=== PATIENT | male | born 1970 | race Caucasian/White ===

== ENCOUNTER → 2019-08-24 14:14 | Outpatient (BNVA) | payer OTHER, SELFPAY | PROVIDERS: Family Provider Family Medicine; PCP Family Medicine; Visit Provider Nurse Practitioner Family | DX: R05 Cough (principal) | CPT/HCPCS: 87071; 87400; 87635; 87880 ==

== ENCOUNTER → 2021-11-23 13:15 | Outpatient (BNVA) | payer BC, MEDICAID, SELFPAY | PROVIDERS: Family Provider Family Medicine; PCP Family Medicine; Visit Provider Emergency Medicine | DX: J06.9 Acute upper respiratory infection, unspecified (principal); Z20.822 Contact with and (suspected) exposure to COVID-19 | CPT/HCPCS: 87635 ==

== ENCOUNTER 2023-01-01 09:17 | Outpatient (CLI) | payer BC, MEDICAID, SELFPAY ==
--- NOTE | 2023-01-01 09:26 | XR_ITS ---
WS: [id number] XR hand LT min 3V* [id number] REASON FOR EXAM: Left Hand Pain FINDINGS: Minimally displaced fracture at the medial base of the first metacarpal with articular surface involv ement. No other significant abnormality of the left hand. IMPRESSION: Fracture of the first metacarpal as above.
== END 2023-01-01 09:18 | disposition home or self-care (01) ==
LOC: RAD 09:21
PROVIDERS: PCP Nurse Practitioner Family; Visit Provider Nurse Practitioner Family
DX: S62.232A Other displaced fracture of base of first metacarpal bone, left hand, initial encounter for closed fracture (principal); X58.XXXA Exposure to other specified factors, initial encounter
CPT/HCPCS: 73130

== ENCOUNTER → 2023-01-12 07:38 | Outpatient (BNVA) | payer BC, MEDICAID, SELFPAY | PROVIDERS: PCP Nurse Practitioner Family; Visit Provider Student in an Organized Health Care Education/Training Program | DX: S62.202A Unspecified fracture of first metacarpal bone, left hand, initial encounter for closed fracture; W16.112A Fall into natural body of water striking water surface causing other injury, initial encounter; Y93.16 Activity, rowing, canoeing, kayaking, rafting and tubing | CPT/HCPCS: 73130 ==

== ENCOUNTER 2023-01-12 10:59 | Outpatient (CLI) | payer BC, MEDICAID, SELFPAY | END 2023-01-12 11:00 | disposition home or self-care (01) | LOC: SPT 10:59 | PROVIDERS: PCP Nurse Practitioner Family; Visit Provider Student in an Organized Health Care Education/Training Program | DX: Z46.89 Encounter for fitting and adjustment of other specified devices (principal); S62.202D Unspecified fracture of first metacarpal bone, left hand, subsequent encounter for fracture with routine healing; X58.XXXD Exposure to other specified factors, subsequent encounter | CPT/HCPCS: 97760; L3982 ==

== ENCOUNTER 2023-01-20 09:40 | Outpatient (CLI) | payer BC, MEDICAID, SELFPAY ==
--- NOTE | 2023-01-20 10:00 | CT_ITS ---
WS: [id number] CT LEFT HAND, NONCONTRAST HISTORY: left hand contusion, pain at base of thumb. Technique: All CT scans at [facility] use at least one of these dose optimization techniques: automated exposure control; mA and/or kV adjustment per patient size (includes targeted exams where dose is matched to clinical indication); or iterative reconstruction. DLP: 126.35 mGy.cm COMPARISON: Hand radiograph 01/12/2023 Comminuted intra-articular fracture involving the base of the first metacarpal. Fracture fragment is triangulated measuring 6 x 10 mm. This fracture extends to the carpometacarpal articulation with mild displacement by 4 mm along the fracture. There are additional smaller comminuted fracture fragments along the medial first metacarpal. No additional fractures. Scaphoid is normal. The remaining metacarpals are normally aligned. IMPRESSION: 1. Comminuted intra-articular fracture involving the base of the first metacarpal. 2. Largest fracture fragment is 6 x 10 mm and displaced from the parent bone by 4 mm.
== END 2023-01-20 09:41 | disposition home or self-care (01) ==
LOC: RAD 09:42
PROVIDERS: PCP Nurse Practitioner Family; Visit Provider Student in an Organized Health Care Education/Training Program
DX: S62.232A Other displaced fracture of base of first metacarpal bone, left hand, initial encounter for closed fracture (principal); X58.XXXA Exposure to other specified factors, initial encounter
CPT/HCPCS: 73200

== ENCOUNTER 2023-02-11 11:36 | Day surgery (SDC) | payer BC, MEDICAID, SELFPAY ==
[2023-02-10 14:46] VITALS: BMI 41.0
[2023-02-11] VITALS (10 sets, daily range): BP systolic 108–162; BP diastolic 64–121; PULSE 72–88; RESP 12–22; TEMP 36.1–36.8; O2SAT 94–98; BMI 41.0
--- NOTE | 2023-02-11 | XR_ITS ---
WS: [id number] XR hand LT min 3V* [id number] REASON FOR EXAM: ORIF first metacarpal , or pic FINDINGS: Screw fixation of oblique fracture at the medial base of the first metacarpal. Fracture fragments are in good position and alignment. Surgical appliances are intact and in proper position and alignment. IMPRESSION: First metacarpal fracture with fixation without abnormality.
[2023-02-11] MEDS: acetaminophen 1,000 MG/100 ML PIGGYBACK 400 MG IV (12:01)
[2023-02-11] MEDS: ketorolac 30 mg/mL INJ IVP (12:01)
[2023-02-11] MEDS: sodium chloride 0.9% 1,000 ML 30 ML IV (12:01)
[2023-02-11] MEDS: vancomycin 1,500 MG/300 ML PIGGYBACK 200 MG IV (12:20)
--- NOTE | 2023-02-11 13:24 | W.PM.OPSUD ---
Surgery/Procedure H&P Update DATE OF PROCEDURE: February 11, 2023 DATE H&P PERFORMED: 02/05/23 H&P UPDATE INFORMATION: I have reviewed H&P completed within last 30 days, I have examined patient prior to procedure and No changes to prior documentation PREOP DIAGNOSIS: Left first metacarpal base fracture PRIMARY INDICATION FOR PROCEDURE: Left first metacarpal base fracture displaced (Padgett) PLANNED PROCEDURE: Operation Date: 02/11/23 13:15 Proposed Procedures p Left first metacarpal open reduction internal fixation 39984,S62.209A(Left) - Barrett Christie DO
--- NOTE | 2023-02-11 13:52 | ANES.PREANE2 ---
Pre-Anesthetic Assessment Height/Weight: Height 1.73 m Weight 122.47 kg Temp Pulse Resp BP Pulse Ox O2 Del Method 96.9 F L 87 18 127/101 97 Room Air 02/11/23 11:53 02/11/23 11:53 02/11/23 11:53 02/11/23 11:53 02/11/23 11:53 02/11/23 11:54 Preop Diagnosis: Left first metacarpal base fracture Operation Date: 02/11/23 13:15 Proposed Procedures p Left first metacarpal open reduction internal fixation 80682,S62.209A(Left) - Barrett Christie DO Familial anesthetic complications: none Was Beta Nurys taken within 24 hours: N/A Was Clonidine taken within 24 hours: N/A Last intake: Intake Last Liquid Date 02/10/23 Last Liquid Time 23:00 Last Solid Date 02/10/23 Last Solid Time 23:00 Last Intake: 23:00 Social Alcohol and Tobacco Exam alert, oriented x 3, clear to auscultation bilaterally and regular rate & rhythm Airway Submandibular: within normal limits Cervical ROM: within normal limits Mallampati: Class II Dentition: full Pulmonary Chronic Obstructive Pulmonary Disease and Cough CV/HEM None reported None reported Hepatic None reported GI None reported Metabolic None reported Musc/skel None reported Neuropsych None reported Anesthetic Plan ASA status: 2 Anesthesia: General Risk of > 500 ml blood loss (7ml/kg in children): No Medications/Allergies Home Medications Medication Instructions Recorded Confirmed Last Taken Type hydrocodone 5 mg-acetaminophen 325 1 tab PO Q6H PRN pain 5 days #20 02/11/23 Unknown Rx mg tablet tabs Allergies Allergy/AdvReac Type Severity Reaction Status Date / Time cephalexin [From Keflex] Allergy RASH Verified 02/05/23 08:13 Current Medications Generic Name Dose Route Start Last Admin Trade Name Freq PRN Reason Stop Dose Admin Sodium Chloride 1,000 mls @ 30 mls/hr 02/11/23 11:45 02/11/23 12:19 Sodium Chloride 0.9% IV 02/12/23 11:44 30 mls/hr .Q24H INDRA Infusion PFSH Anesthesia Social History Smoking and tobacco status: current every day smoker Alcohol intake: current Substance/Drug Use: never Data Anesthesia Cardiac Studies: No Data to Display
[2023-02-11] MEDS: lidocaine 2% INJ 20 mL INJECTION (14:18)
[2023-02-11] MEDS: ROPivacaine 0.5% SDV 30 mL 150 MG INJECTION (14:18)
--- NOTE | 2023-02-11 16:04 | W.PM.BPON ---
Date of Procedure: 02/11/2023 Surgeon: Barrett Christie DO Field Placement Director(s): None Procedure(s) performed: Left first metacarpal base open reduction internal fixation (Padgett fracture ORIF) Findings of the procedure(s): Intra-articular Padgett fracture base of the left first metacarpal, procedure went as planned with 3 lag screw fixation Estimated blood loss: 5 cc Specimen(s) removed: None Post-operative diagnosis: Intra-articular left first metacarpal base fracture
--- NOTE | 2023-02-11 16:06 | PM.OP ---
Operative Report Date of procedure: February 11, 2023 Pre-op diagnosis: Left first metacarpal base fracture Post-op diagnosis: Same with intra-articular involvement consistent with Padgett fracture Procedure done: Left first metacarpal base fracture open reduction internal fixation Implants: [place] handset Three 2.0 mm nonlocking cortical screws placed in lag fashion (16 mm, 18 mm, 15 mm) Surgeon: Barrett Christie DO Estimated blood loss: 5 ML 90 minutes IV fluids: 1200 mL Complications: None Findings: See operative report narrative Condition: stable Disposition: same day Brief History: Patient is a 52-year-old male who sustained an injury to the left thumb findings consistent with a left thumb base of the first metacarpal fracture. Patient had a Padgett fracture with noticeable subluxation as well as large fracture fragment this was CT scan and given the fracture displacement and subluxation of the joint as well as patient's persistent pain with conservative treatment through shared decision making was followed up in the office and decision made to proceed with a left first metacarpal ORIF. Patient understands that the ins and outs procedure the risk benefits complication alternatives surgery elects proceed with surgical intervention all questions answered at this time. Procedure: Patient was seen eval in the preoperative holding area. Consent was reviewed and signed with patient. Correct extremity was then marked. When seen eval by anesthesia and cleared for surgery was taken back to the operative suite. He underwent transportation on a hospital gurney and an armboard was applied to the left upper arm. He underwent anesthesia per the anesthesia department once appropriately anesthetized the left upper extremity had a tourniquet applied not sterilely to the left upper arm. Once appropriately anesthetized left upper extremity is then prepped and draped in standard orthopedic fashion. Final timeout performed. Patient received appropriate preoperative antibiotics. Large C arm was then brought in for visualization of fracture. Patient had a Padgett fracture with a large volar fracture fragment. Given patient's several weeks out from his injury I manipulated the fracture under anesthesia and under fluoroscopic imaging and there was no reduction of this fracture fragment and continued diastases and incongruency of the joint as a result plan was to proceed with open procedure. A standard curvilinear incision was made off of the dorsal and radial aspect of the left thumb metacarpal. This we performed a standard Dickinson approach sharp dissection through skin was performed then switched to Littler dissection scissors identify superficial cutaneous nerve branches which were then subsequently protected. I then protecting the APL and EPB tendons I then performed a standard elevation with a periosteal sleeve off of the metacarpal removing the thenar musculature and 1 thick sleeve. I then utilized a blunt [place] as well as elevator to elevate periosteum volarly. I then placed blunt Padgett retractors to retract the thenar musculature and then encountered the fracture fragment. This was a large volar fracture fragment I utilized a curette dental pick as well as rongeur to debride the bone as well as scar tissue and fibrous tissue that was interposed within the fracture site. Once the fracture site was prepped and appropriately debrided I utilized a [id number] reduction which I had direct visualization after my capsulotomy of the basal joint of the thumb to assess for joint congruity small adjustments were made and once satisfied with my reduction with direct visualization as well as fluoroscopic imaging I proceeded with fixation. Given this large fragment that finger this would be amendable for small 2.0 mm cortical screws. I then subsequently proceeded with placing 2 screws along the subchondral bone to rafter and lagged this fracture fragment. I drilled these under fluoroscopic imaging to verify appropriate trajectory and placement in with multiple orthogonal images. I subsequently drilled these and lag by technique fashion the screws were then appropriately drilled measured and placed appropriate length screws along the subchondral surface had excellent fixation of the fracture fragment. These were confirmed utilizing visualization through my capsulotomy did not be intra-articular and at this point in time I placed 1 more additional lag screw and more oblique fashion from the metacarpal shaft proximally and more in an oblique angle. This was subsequently drilled and lag screw by technique was then drilled measured and placed appropriate length screw with excellent fixation. This point time I then removed my dental clip and had excellent fixation and secure reduction of the basal joint and the base of the first metacarpal fracture. I took the thumb through gentle range of motion joint was located within the trapezium saddle and had smooth motion with no clicking. Final images were taken with x-ray and confirmed appropriate reduction and fixation of the base of the first metacarpal fracture. Tourniquet was deflated hemostasis was satisfactory. Thorough irrigation was then performed. I then closed the capsulotomy with moderate Monocryl suture as well as repair of the thenar musculature back to the periosteum. I then closed the skin with interrupted Vicryl suture and nylon stitches. Patient was then dressed with Xeroform 4 x 4's Kerlix ABD and soft roll as well as a thumb spica splint was applied with Twin wrap. Patient was then awake from anesthesia and taken to PACU in stable condition. Disposition: Patient taken to PACU in stable condition recovering well pain controlled. Patient received appropriate discharge structure as well as pain medication postoperatively. We will be nonweightbearing to the operative extremity maintain splint until follow-up. Patient understands agrees to current plan. Questions answered.
[2023-02-11] MEDS: HYDROcodone-acetaminophen 5-325 mg Tablet 1 TAB PO (16:58)
== END 2023-02-11 17:22 | disposition home or self-care (01) ==
PROVIDERS: PCP Nurse Practitioner Family; Visit Provider Student in an Organized Health Care Education/Training Program
PROC: (CPT 26615; 2023-02-11 13:05)
DX: S62.212A Bennett's fracture, left hand, initial encounter for closed fracture (principal); X58.XXXA Exposure to other specified factors, initial encounter; J44.9 Chronic obstructive pulmonary disease, unspecified; F17.210 Nicotine dependence, cigarettes, uncomplicated
CPT/HCPCS: 26615; 73130; 76000; C1713; J0131; J1100; J1170; J1885; J2405; J2704; J2795; J3010; J3370; J7030

== ENCOUNTER → 2023-02-25 13:24 | Outpatient (BNVA) | payer BC, MEDICAID, SELFPAY | PROVIDERS: PCP Nurse Practitioner Family; Visit Provider Physician Assistant | DX: S62.202D Unspecified fracture of first metacarpal bone, left hand, subsequent encounter for fracture with routine healing; X58.XXXD Exposure to other specified factors, subsequent encounter | CPT/HCPCS: 73130 ==

== ENCOUNTER → 2023-03-11 14:22 | Outpatient (BNVA) | payer BC, MEDICAID, SELFPAY | PROVIDERS: PCP Nurse Practitioner Family; Visit Provider Physician Assistant | DX: S62.202D Unspecified fracture of first metacarpal bone, left hand, subsequent encounter for fracture with routine healing; X58.XXXD Exposure to other specified factors, subsequent encounter | CPT/HCPCS: 73130 ==

== ENCOUNTER 2023-04-01 06:00 | Outpatient (CLI) | payer BC, MEDICAID, SELFPAY | END 2023-04-01 06:01 | LOC: SOT 04-05 10:50 | PROVIDERS: PCP Nurse Practitioner Family; Visit Provider Student in an Organized Health Care Education/Training Program | DX: Z46.89 Encounter for fitting and adjustment of other specified devices (principal); S62.202D Unspecified fracture of first metacarpal bone, left hand, subsequent encounter for fracture with routine healing; X58.XXXD Exposure to other specified factors, subsequent encounter | CPT/HCPCS: 97760; L3919 ==

== ENCOUNTER → 2023-04-01 09:29 | Outpatient (BNVA) | payer BC, MEDICAID, SELFPAY | PROVIDERS: PCP Nurse Practitioner Family; Visit Provider Physician Assistant | DX: S62.202D Unspecified fracture of first metacarpal bone, left hand, subsequent encounter for fracture with routine healing; X58.XXXD Exposure to other specified factors, subsequent encounter | CPT/HCPCS: 73130 ==

== ENCOUNTER 2024-02-18 13:18 | Outpatient (CLI) | payer BC, MEDICAID, SELFPAY ==
--- NOTE | 2024-02-18 13:24 | CT_ITS ---
WS: [id number] LDCT LUNG CANCER SCREENING HISTORY: SMOKING GREATER THAN 30 PACK YEAR TECHNIQUE: Axial imaging performed from the apices to 1 cm below the costophrenic angles. Coronal and sagittal reformats are submitted with axial MIP series. All CT scans at [facility] use at least one of these dose optimization techniques: automated exposure control; mA and/or kV adjustment per patient size (includes targeted exams where dose is matched to clinical indication); or iterativ e reconstruction. DLP: 128.90 mGy.cm DIvol: Mean CTDIvol: 3.00 (mGy) COMPARISON: None available. Diagnostic quality: Motion artifact and poor inspiratory effort. Lungs: Hazy attenuation within slightly related to smoking history. 4 mm subpleural nodule anterior L EFT upper lobe. Benign granuloma in the RIGHT middle and RIGHT lower lobes. 4 mm subpleural nodule RI GHT lung base, image 206 of series 4. Heart: Normal size heart with no pericardial effusion.. Other findings: No adenopathy. Partially calcified lymph nodes at the RIGHT hilum. No adrenal mass. CT/CT lung screening [id number] IMPRESSION: LUNG-RADS: 2-Benign Appearance or Behavior FOLLOW UP: 12 Month: Continue annual screening with LDCT OTHER FINDINGS (S MODIFIER): None.
== END 2024-02-18 13:19 | disposition home or self-care (01) ==
LOC: RAD 13:19
PROVIDERS: PCP Nurse Practitioner Family; Visit Provider Nurse Practitioner Family
DX: Z12.2 Encounter for screening for malignant neoplasm of respiratory organs (principal); R91.8 Other nonspecific abnormal finding of lung field; J84.10 Pulmonary fibrosis, unspecified
CPT/HCPCS: 71271

== ENCOUNTER 2024-08-08 10:44 | Day surgery (SDC) | payer BC, MEDICAID, SELFPAY ==
[2024-08-08 11:14] VITALS: BP 128/86; PULSE 85; RESP 16; TEMP 36.4; O2SAT 97; BMI 38.0
[2024-08-08] MEDS: sodium chloride 0.9% 500 ML 15 ML IV (11:19)
--- NOTE | 2024-08-08 12:09 | ANES.PREANE2 ---
Pre-Anesthetic Assessment Height/Weight: Height 1.73 m Weight 113.398 kg Temp Pulse Resp BP Pulse Ox O2 Del Method 97.5 F L 85 16 128/86 97 Room Air 08/08/24 11:14 08/08/24 11:14 08/08/24 11:14 08/08/24 11:14 08/08/24 11:14 08/08/24 11:14 Preop Diagnosis: GI issues/urinary issues Operation Date: 08/08/24 11:45 Proposed Procedures p EGD [id number] G0105 Z12.11(Not Applicable) - Johann Sutherland MD s Colonoscopy(Not Applicable) - Johann Sutherland MD Familial anesthetic complications: none Was Beta Nurys taken within 24 hours: N/A Was Clonidine taken within 24 hours: N/A Last intake: Intake Last Liquid Date 08/07/24 Last Liquid Time 22:30 Last Solid Date 08/06/24 Last Solid Time 20:00 Social Alcohol and Tobacco 1/2 PPD pack(s) per day Occassional Marijuanna Exam alert, oriented x 3, clear to auscultation bilaterally and regular rate & rhythm Airway Submandibular: within normal limits Cervical ROM: within normal limits Mallampati: Class II Dentition: full History/ROS No significant history except as noted and No significant complaints Pulmonary None reported CV/HEM Hypertension None reported Hepatic None reported GI None reported Metabolic None reported Musc/skel None reported Neuropsych None reported Anesthetic Plan ASA status: 3 Anesthesia: MAC Risk of > 500 ml blood loss (7ml/kg in children): No Medications/Allergies Home Medications ?Medication ?Instructions ?Recorded ?Confirmed ?Last Taken ?Type fast form wrist spint #1 ea 03/11/23 04/01/23 Unknown Rx Custom Thumb Spika Splint #1 ea 04/01/23 04/01/23 Unknown Rx lisinopril 5 mg tablet 5 mg PO DAILY 07/21/24 08/08/24 08/07/24 History meloxicam 15 mg tablet 15 mg PO DAILY 07/21/24 08/08/24 08/07/24 History Allergies Allergy/AdvReac Type Severity Reaction Status Date / Time cephalexin (From Keflex) Allergy RASH Verified 08/08/24 11:14 Current Medications Generic Name Dose Route Start Last Admin Trade Name Freq PRN Reason Stop Dose Admin Sodium Chloride 500 mls @ 15 mls/hr 08/08/24 11:03 08/08/24 11:19 Sodium Chloride 0.9% IV 08/09/24 11:02 15 mls/hr .Q24H PRN Administration COLONOSCOPY FLUIDS PFSH Anesthesia Social History Smoking and tobacco/nicotine status: unknown if used tobacco/nicotine Alcohol intake: current Substance/Drug Use: never Data Anesthesia Cardiac Studies: No Data to Display
--- NOTE | 2024-08-08 12:14 | W.PM.OPSUD ---
Surgery/Procedure H&P Update DATE OF PROCEDURE: August 08, 2024 DATE H&P PERFORMED: 07/21/24 H&P UPDATE INFORMATION: I have reviewed H&P completed within last 30 days, I have examined patient prior to procedure and No changes to prior documentation PREOP DIAGNOSIS: GI issues/urinary issues PLANNED PROCEDURE: Operation Date: 08/08/24 11:45 Proposed Procedures p EGD [id number] G0105 Z12.11(Not Applicable) - Johann Sutherland MD s Colonoscopy(Not Applicable) - Johann Sutherland MD
[2024-08-08 12:55] VITALS: BP 112/62; PULSE 83; RESP 20; TEMP 36.2; O2SAT 90
[2024-08-08 13:10] VITALS: BP 123/73; PULSE 79; RESP 19; O2SAT 96
[2024-08-08 13:23] VITALS: BP 100/78; PULSE 72; RESP 16; O2SAT 97
--- NOTE | 2024-08-08 13:40 | ANE.PACU2 ---
Inpatient post-anesthesia follow up: Airway intact: Yes Vital signs: Temperature 97.2 F Pulse Rate 72 Respiratory Rate 16 Blood Pressure 100/78 Pulse Oximetry 97 Oxygen Delivery Me thod Room Air Oxygen Flow Rate Fraction of Inspir ed Oxygen Hydration adequate: Yes Nausea and vomiting: No Pain level: 1 Mental status: Baseline
== END 2024-08-08 13:41 | disposition home or self-care (01) ==
PROVIDERS: PCP Nurse Practitioner Family; Visit Provider Student in an Organized Health Care Education/Training Program
PROC: 0DJ08ZZ Inspection of Upper Intestinal Tract, Via Natural or Artificial Opening Endoscopic (ICD-10-PCS; principal; 2024-08-08 11:45)
PROC: 0DJD8ZZ Inspection of Lower Intestinal Tract, Via Natural or Artificial Opening Endoscopic (ICD-10-PCS; CPT 45378; 2024-08-08 11:45)
DX: Z12.11 Encounter for screening for malignant neoplasm of colon (principal); C18.2 Malignant neoplasm of ascending colon; K29.50 Unspecified chronic gastritis without bleeding; D12.5 Benign neoplasm of sigmoid colon; K29.80 Duodenitis without bleeding; D12.8 Benign neoplasm of rectum; I10 Essential (primary) hypertension; F17.210 Nicotine dependence, cigarettes, uncomplicated; Z79.899 Other long term (current) drug therapy; Z88.1 Allergy status to other antibiotic agents
CPT/HCPCS: 43239; 45380; 45381; 45385; 88305; J2704; J7040

== ENCOUNTER 2024-09-05 08:42 | Outpatient (CLI) | payer BC, MEDICAID, SELFPAY ==
--- NOTE | 2024-09-05 08:47 | CT_ITS ---
WS: [id number] CT CHEST, ABDOMEN AND PELVIS WITH CONTRAST HISTORY: MALIGNANT NEOPLASM OF COLON/RECTAL POLYP TECHNIQUE: Contiguous 5 mm axial imaging performed through the chest, abdomen and pelvis with IV contrast, oral contrast has been provided. Coronal and sagittal reformats chest. Coronal and sagittal reformats through the abdomen and pelvis. All CT scans at [facility] use at least one of these dose optimization techniques: automated exposure control; mA and/or kV adjustment per patient size (includes targeted exams where dose is matched to clinical indication); or iterative reconstruction. CONTRAST: Omnipaque 350; 100 mL IV. DLP: 1679.61 mGy.cm COMPARISON: Lung screening 02/18/2024, 11/11/[address] Chest CT: No pulmonary mass or nodule. There are a few benign RIGHT lung granulomata which are calcified. No pneumonia. Heart size is normal. No pericardial or pleural effusion. Normal size aorta and pulmonary artery. No mediastinal or hilar adenopathy. Very small hiatal hernia. No chest wall abnormality. Abdomen CT: Normal size liver. 2 mm subdiaphragmatic low-attenuation nodule RIGHT lobe of the liver was not present in 2017. No intrahepatic duct dilatation. Negative portal vein. Unremarkable gallbladder. Normal pancreas and spleen. Normal adrenal glands. No renal obstruction or mass. Minimal atherosc lerosis aorta. Mesenteric arteries are normally enhancing. No ascites or adenopathy. Stomach is normally distended. No small bowel obstruction. Normal appendix. Solid mass in the ascending colon with narrowing of the lumen. Mass extends over a length of 3.8 cm with adjacent lymphadenopathy. Largest lymph node is 11 mm. No additional mass identified. Linear foreign body in the distal segment lead may be from a prior biopsy site with clipping. Mild sigmoid diverticulosis. Pelvic CT: Well-distended urinary bladder. No free fluid or adenopathy in the pelvis. No ascites. No osteoblastic or osteolytic bone disease. CT/CT chest abdpel w/*[id number] IMPRESSION: 1. Solid mass in the ascending colon extends over a length of 3.8 cm with asym metric narrowing of the lumen. No obstruction at this time. Highly suspicious f or colon neoplasm. 2. Lymphadenopathy RIGHT lower quadrant closely associated with the colon neop lasm. The largest lymph node is 11 mm. Suspect metastatic adenopathy. 3. No pulmonary mass or lymphadenopathy in the chest. 4. 2 mm send diaphragmatic low-attenuation liver nodule. New since 2017. This can be evaluated on follow-up exams for possible early metastatic site. 5. No adrenal mass. 6. Mild sigmoid diverticulosis without acute diverticulitis.
[2024-09-05] MEDS: iohexol 350 mg/mL 500 mL Btl (per mL) PO (09:11)
[2024-09-05] MEDS: iohexol 350 mg/mL 500 mL Btl (per mL) IV (10:16)
== END 2024-09-05 08:43 | disposition home or self-care (01) ==
PROVIDERS: PCP Nurse Practitioner Family; Visit Provider Nurse Practitioner
DX: C18.9 Malignant neoplasm of colon, unspecified (principal); K62.1 Rectal polyp; K63.89 Other specified diseases of intestine; R59.0 Localized enlarged lymph nodes; K76.89 Other specified diseases of liver; K57.30 Diverticulosis of large intestine without perforation or abscess without bleeding; J84.10 Pulmonary fibrosis, unspecified; K44.9 Diaphragmatic hernia without obstruction or gangrene
CPT/HCPCS: 71260; 74177

== ENCOUNTER 2024-11-01 09:11 | Oncology outpatient (recurring) (ONCR) | payer BC, MEDICAID, SELFPAY ==
[2024-11-01 10:33] LABS: Basophils # 0.1 10^3/uL (0.0-0.1); Eosinophils # 0.3 10^3/uL (0.0-0.8); Eosinophils % 4.9 %; Hematocrit 48.4 % (37-53); Lymphocytes # 2.5 10^3/uL (0.8-4.8); Lymphocytes % 42.1 %; Mean Corpuscular HGB Conc 33.1 g/dL (30-55); Mean Corpuscular Hemoglobin 29.6 pg (27-33); Mean Corpuscular Volume 89.5 fl (82-101); Mean Platelet Volume 9.7 fL (7.4-10.4); Monocytes # 0.5 10^3/uL (0.2-0.9); Monocytes % 9.1 %; Neutrophils # 2.53 10^3/uL (1.8-7.7); Neutrophils % 42.7 %; Nucleated Red Blood Cells % 0 %; Platelet Count 227 10^3/cmm (157-399); Red Blood Count 5.41 10^6/uL (3.85-5.65); Red Cell Distribution Width 13.7 % (12.1-15.1); White Blood Count 5.92 10^3/uL (3.29-11.43)
[2024-11-01 10:59] LABS: Carcinoembryonic Antigen 3.8 ng/mL (0.0-4.7)
[2024-11-01 11:10] LABS: Alanine Aminotransferase 28 U/L (0-41); Albumin Level 4.1 g/dL (3.5-5.2); Alkaline Phosphatase 79 U/L (40-130); Anion Gap 13.1 (5-19); Aspartate Amino Transferase 26 U/L (0-40); Blood Urea Nitrogen 13 mg/dL (6-20); Calcium 9.3 mg/dL (8.5-10.5); Carbon Dioxide 26 mmol/L (22-29); Chloride 106 mmol/L (98-107); Globulin 2.7 g/dL (1.3-4.6); Glomerular Filtration Rate 77.9 mL/min (90-130); Glucose 103 mg/dL (65-115); Osmolality Calculated 290 mOsm/kg (285-295); Potassium 5.1 mmol/L (3.5-5.1); Sodium 140 mmol/L (136-145); Total Bilirubin 0.4 mg/dL (0.15-1.2); Total Protein 6.8 g/dL (6.6-8.7)
== END 2024-11-20 23:59 | disposition home or self-care (01) ==
PROVIDERS: PCP Nurse Practitioner Family; Visit Provider Internal Medicine
DX: C19 Malignant neoplasm of rectosigmoid junction (principal)
CPT/HCPCS: 36415; 80053; 82378; 85025

== ENCOUNTER 2025-01-05 11:58 | Oncology outpatient (recurring) (ONCR) | payer BC, MEDICAID, SELFPAY ==
[2025-01-05] MEDS: iohexol 350 mg/mL 500 mL Btl (per mL) PO (12:18)
--- NOTE | 2025-01-05 12:30 | CTR_ITS ---
PROCEDURE INFORMATION: Exam: CT Chest With Contrast; Diagnostic Exam date and time: 01/05/2025 12:58 PM Age: 54 years old Clinical indication: Condition or disease; Other: Colorectal cancer; Prior surgery; Surgery date: 1-6 months; Surgery type: --colon 10/2024 TECHNIQUE: Imaging protocol: Diagnostic computed tomography of the chest with contrast. Radiation optimization: All CT scans at this facility use at least one of these dose optimization techniques: automated exposure control; mA and/or kV adjustment per patient size (includes targeted exams where dose is matched to clinical indication); or iterative reconstruction. Contrast material: OMNI 350; Contrast volume: 100 ml; Contrast route: INTRAVENOUS (IV); COMPARISON: CT chest abdpel w/*[id number] 09/05/2024 10:10 AM RADIATION DOSE METRICS: Total DLP (mGy-cm): 1589.68 FINDINGS: Lungs: Calcified 8-9 mm left upper lobe granuloma, image 18 series 4. Calcified subpleural right upper lobe granuloma about 7 mm in diameter image 31 series 4. Calcified 3 mm right upper lobe granuloma image 32 series 4. Calcified 5 mm right lower lobe granuloma image 45 series 4. There is minimal dependent bibasilar atelectasis. Pleural spaces: Unremarkable. No pneumothorax. No pleural effusion. Heart: Unremarkable. No cardiomegaly. No pericardial effusion. Lymph nodes: Unremarkable. No enlarged lymph nodes. Vasculature: Unremarkable. No aortic aneurysm. Bones/joints: Unremarkable. No acute fracture. Soft tissues: Unremarkable. PROCEDURE INFORMATION: Exam: CT Abdomen And Pelvis With Contrast Exam date and time: 01/05/2025 12:58 PM Age: 54 years old Clinical indication: Condition or disease; Other: Colorectal cancer; Prior surgery; Surgery date: 1-6 months; Surgery type: --colon 10/2024 TECHNIQUE: Imaging protocol: Computed tomography of the abdomen and pelvis with contrast. Radiation optimization: All CT scans at this facility use at least one of these dose optimization techniques: automated exposure control; mA and/or kV adjustment per patient size (includes targeted exams where dose is matched to clinical indication); or iterative reconstruction. Contrast material: OMNI 350; Contrast volume: 100 ml; Contrast route: INTRAVENOUS (IV); COMPARISON: CT chest abdpel w/*[id number] 09/05/2024 10:10 AM RADIATION DOSE METRICS: Total DLP (mGy-cm): 1589.68 FINDINGS: Liver: 3 mm hypodensity subdiaphragmatic right lobe of the liver, segment 7 image 51 series 3. This is too small to characterize and has not changed. Gallbladder and biliary ducts: Normal. No calcified stones. No ductal dilation. Pancreas: Normal. No ductal dilation. Spleen: Normal. No splenomegaly. Adrenal glands: Normal. No mass. Kidneys and ureters: Normal. No hydronephrosis. Stomach and bowel: Status post right hemicolectomy. Appendix: No evidence of appendicitis. Intraperitoneal space: See Liver finding. Vasculature: Unremarkable. No abdominal aortic aneurysm. Lymph nodes: Unremarkable. No enlarged lymph nodes. Urinary bladder: Unremarkable as visualized. Reproductive: Unremarkable as visualized. Bones/joints: Unremarkable. No acute fracture. Soft tissues: Unremarkable. CT/CT chest abdpel w/*[id number] IMPRESSION: No acute findings. IMPRESSION: 1. Stable low-attenuation liver nodule. 2. Status post right hemicolectomy since the last exam. 3. No evidence of metastatic disease.
[2025-01-05] MEDS: iohexol 350 mg/mL 500 mL Btl (per mL) IV (13:01)
== END 2025-01-21 23:59 | disposition home or self-care (01) ==
LOC: RAD 11:58 → ONCMED 01-08 09:13
PROVIDERS: PCP Nurse Practitioner Family; Visit Provider Internal Medicine
DX: C19 Malignant neoplasm of rectosigmoid junction (principal)
CPT/HCPCS: 71260; 74177